=== PATIENT | female | born 1965 | race Caucasian/White ===

== ENCOUNTER 2023-12-26 21:28 | Emergency (ER) | payer OTHER, SELFPAY ==
[2023-12-26 21:29] VITALS: BMI 50.1
[2023-12-26 21:32] VITALS: BP 125/73
[2023-12-26 21:41] VITALS: BP 125/73
--- NOTE | 2023-12-26 21:56 | ED.GENMED ---
History of Present Illness
<Elsa Fraga MD, Resident - Last Filed: 12/27/23 04:43>
General
Chief Complaint: Crisis Evaluation
Source: patient
Exam Limitations: none
Time Seen by Provider: 12/26/23 21:55
Nursing documentation reviewed up to this point in time: agreed with
Travel History
Have you traveled to any high risk areas for coronavirus over the past 14 days?: No
Have you had any contact with someone who has COVID-19?: No
Do you have any symptoms of coronavirus? Fever > 100 degrees, chills, cough, shortness of breath, sore throat, loss of taste or smell, muscle aches, or headache?: No
History of Present Illness
History of Present Illness:
Patient is a 58-year-old female with complicated past medical history multiple sclerosis endometrial neoplasia, frequent UTIs, renal calculi presents to Hospital for evaluation of active suicidal ideation. She states that for the last 6 years she
was in the hospital multiple times and was discharged to [facility], and has been struggling back and forth between [facility] and hospital admissions. She states that she cannot take living at [facility] anymore. States that she had a diagnosis
of mental health illness 5 years ago, 1 year after being in [facility], and was on mood stabilizer. She does not recall the name of her mood stabilizer, and also states that she lost access to her therapist about 3 months ago.
She is sick of going to bed hungry, she is sick of people screaming around her, states that [facility] admits prisoners, crazy people that screams, people touch her things and do not value her opinion, or give any value to her things. Last time she
stood up on her legs was 100 July 21, 2017 and her quality of life has decreased ever since. She has a sister in [facility] who she is in touch with on phone but does not discuss any of these. She was never , does not have
friends, or a partner or family. She is bedridden, does not have access to any weapons, states that ' this time it is an exacto knife', but denies any attempts to suicide in the past.
Admits to have cut herself in the past multiple times for her mental pain to go away, but never attempted suicide.
She admits to having visual hallucinations secondary to multiple sclerosis but it never changed from her baseline.
She denies having impulsive behavior, auditory and tactile hallucinations.
Past History
<Elsa Fraga MD, Resident - Last Filed: 12/27/23 04:43>
Past History
ED Past Medical History: Other (Multiple sclerosis, constipation, dysmenorrhea, renal calculi, frequent UTI, endometrial neoplasia.)
ED Past Surgical History: Other (Cholecystectomy-2015, hysterectomy, appendectomy-2021.)
Patient has exhibited threatening behavior?: No
Social History
Tobacco: Non-smoker
Alcohol: None
Drug: None
Personal: Single
Living: assisted
Employment: Not employed
Family History
Family History: Unable to obtain
Review of Systems
<Elsa Fraga MD, Resident - Last Filed: 12/27/23 04:43>
Review of Systems
Constitutional: Reports no symptoms
EENT: Reports no symptoms
Cardiac: Reports no symptoms
ABD/GI: Reports no symptoms
: Reports no symptoms
Musculoskeletal: Reports no symptoms
Skin: Reports no symptoms
Neurological: Reports no symptoms
Endocrine: Reports no symptoms
Hematologic/Lymphatic: Reports no symptoms
Psychiatric: Reports no symptoms
Phy Exam
<Elsa Fraga MD, Resident - Last Filed: 12/27/23 04:43>
General Physical Exam
General Presentation: other (Morbidly obese.)
General Skin: warm and flushed
General Habitus: obese
General Hydration: appears well hydrated
ENT Exam
ENT Exam: normocephalic
Eye Exam
Eye Exam: PERRL and EOMI
Cardiovascular Exam
Cardiovascular Exam: regular rate/rhythm, no edema, no gallop, no JVD and no murmur
Heart Sounds: normal
Pulmonary Exam
Pulmonary Exam: lungs clear, no rales, no crackles and no rhonchi
Gastrointestinal Exam
Gastrointestinal Exam: normal bowel sounds, soft, no cva tenderness and other (Mild tenderness to palpation in the left lower quadrant)
Neurological Exam
Neurological Exam: alert, no sensory deficits and motor weakness
Musculoskeletal Exam
Musculoskeletal Exam: other (Bedbound)
Course
<Elsa Fraga MD, Resident - Last Filed: 12/27/23 04:43>
Orders/Labs/Results
Orders:
Orders
12/26/23 22:01
1:1 Observation - Suicide/ Violent Behavior As Directed
12/26/23 22:31
Crisis Consult Routine
Reason for Consult: Suicidal ideation.
12/27/23 Lunch
2000 calorie (17 carb) Diabetic
At Your Request: Full Participation
12/27/23 18:27
Apixaban [Eliquis] 5 mg .ROUTE .STK-MED ONE
12/27/23 20:00
Apixaban [Eliquis] 5 mg PO BID
12/28/23 12:43
Acetaminophen [Tylenol] 650 mg PO Q6HPRN PRN
Albuterol Nebs [Ventolin Nebules] 2.5 mg INH R Q6HPRN PRN
12/28/23 12:45
insulin aspart (niacinamide) [Fiasp FlexTouch U-100 Insulin] 16 unit SC .AFTERNOON
metformin 1,000 mg PO BID
12/28/23 13:00
Amlodipine [Norvasc] 5 mg PO DAILY
Duloxetine Delayed Release [Cymbalta Delayed Release] 60 mg PO DAILY
Lisinopril [Zestril] 5 mg PO DAILY
12/28/23 16:00
insulin aspart (niacinamide) [Fiasp FlexTouch U-100 Insulin] 0 - 10 sliding scale dose SC TID
12/28/23 18:00
insulin aspart (niacinamide) [Fiasp FlexTouch U-100 Insulin] 15 unit SC QPM
12/28/23 22:00
Ropinirole [Requip] 2 mg PO HS
Trazodone [Desyrel] 25 mg PO HS
insulin glargine 44 unit SC HS
12/30/23 12:43
glatiramer 40 mg SC TUTHSA
01/02/24 08:00
dulaglutide [Trulicity] 1.5 mg SC FR
Abnormal Lab Results
12/27/23
18:16
POC Glucose 199 H mg/dl
(70-99)
Vital Signs
Initial and Last Documented VS:
Initial Vital Signs
Pulse Resp Pulse Ox
69 22 95
12/26/23 21:31 12/26/23 21:31 12/26/23 21:31
Last Documented Vital Signs
Temp Pulse Resp BP Pulse Ox
98.5 F 72 18 132/90 97
12/27/23 17:26 12/28/23 16:20 12/28/23 10:55 12/28/23 16:20 12/28/23 10:55
<Haydee Lee MD - Last Filed: 12/27/23 00:21>
Orders/Labs/Results
Orders:
Orders
12/26/23 22:01
1:1 Observation - Suicide/ Violent Behavior As Directed
12/26/23 22:31
Crisis Consult Routine
Reason for Consult: Suicidal ideation.
12/27/23 Lunch
2000 calorie (17 carb) Diabetic
At Your Request: Full Participation
12/27/23 18:27
Apixaban [Eliquis] 5 mg .ROUTE .STK-MED ONE
12/27/23 20:00
Apixaban [Eliquis] 5 mg PO BID
12/28/23 12:43
Acetaminophen [Tylenol] 650 mg PO Q6HPRN PRN
Albuterol Nebs [Ventolin Nebules] 2.5 mg INH R Q6HPRN PRN
12/28/23 12:45
insulin aspart (niacinamide) [Fiasp FlexTouch U-100 Insulin] 16 unit SC .AFTERNOON
metformin 1,000 mg PO BID
12/28/23 13:00
Amlodipine [Norvasc] 5 mg PO DAILY
Duloxetine Delayed Release [Cymbalta Delayed Release] 60 mg PO DAILY
Lisinopril [Zestril] 5 mg PO DAILY
12/28/23 16:00
insulin aspart (niacinamide) [Fiasp FlexTouch U-100 Insulin] 0 - 10 sliding scale dose SC TID
12/28/23 18:00
insulin aspart (niacinamide) [Fiasp FlexTouch U-100 Insulin] 15 unit SC QPM
12/28/23 22:00
Ropinirole [Requip] 2 mg PO HS
Trazodone [Desyrel] 25 mg PO HS
insulin glargine 44 unit SC HS
12/30/23 12:43
glatiramer 40 mg SC TUTHSA
01/02/24 08:00
dulaglutide [Trulicity] 1.5 mg SC FR
Abnormal Lab Results
12/27/23
18:16
POC Glucose 199 H mg/dl
(70-99)
Vital Signs
Initial and Last Documented VS:
Initial Vital Signs
Pulse Resp Pulse Ox
69 22 95
12/26/23 21:31 12/26/23 21:31 12/26/23 21:31
Last Documented Vital Signs
Temp Pulse Resp BP Pulse Ox
98.5 F 72 18 132/90 97
12/27/23 17:26 12/28/23 16:20 12/28/23 10:55 12/28/23 16:20 12/28/23 10:55
<Cam Tyler, DO - Last Filed: 12/28/23 17:03>
Orders/Labs/Results
Orders:
Orders
12/26/23 22:01
1:1 Observation - Suicide/ Violent Behavior As Directed
12/26/23 22:31
Crisis Consult Routine
Reason for Consult: Suicidal ideation.
12/27/23 Lunch
2000 calorie (17 carb) Diabetic
At Your Request: Full Participation
12/27/23 18:27
Apixaban [Eliquis] 5 mg .ROUTE .STK-MED ONE
12/27/23 20:00
Apixaban [Eliquis] 5 mg PO BID
12/28/23 12:43
Acetaminophen [Tylenol] 650 mg PO Q6HPRN PRN
Albuterol Nebs [Ventolin Nebules] 2.5 mg INH R Q6HPRN PRN
12/28/23 12:45
insulin aspart (niacinamide) [Fiasp FlexTouch U-100 Insulin] 16 unit SC .AFTERNOON
metformin 1,000 mg PO BID
12/28/23 13:00
Amlodipine [Norvasc] 5 mg PO DAILY
Duloxetine Delayed Release [Cymbalta Delayed Release] 60 mg PO DAILY
Lisinopril [Zestril] 5 mg PO DAILY
12/28/23 16:00
insulin aspart (niacinamide) [Fiasp FlexTouch U-100 Insulin] 0 - 10 sliding scale dose SC TID
12/28/23 18:00
insulin aspart (niacinamide) [Fiasp FlexTouch U-100 Insulin] 15 unit SC QPM
12/28/23 22:00
Ropinirole [Requip] 2 mg PO HS
Trazodone [Desyrel] 25 mg PO HS
insulin glargine 44 unit SC HS
12/30/23 12:43
glatiramer 40 mg SC TUTHSA
01/02/24 08:00
dulaglutide [Trulicity] 1.5 mg SC FR
Abnormal Lab Results
12/27/23
18:16
POC Glucose 199 H mg/dl
(70-99)
Vital Signs
Initial and Last Documented VS:
Initial Vital Signs
Pulse Resp Pulse Ox
69 22 95
12/26/23 21:31 12/26/23 21:31 12/26/23 21:31
Last Documented Vital Signs
Temp Pulse Resp BP Pulse Ox
98.5 F 72 18 132/90 97
12/27/23 17:26 12/28/23 16:20 12/28/23 10:55 12/28/23 16:20 12/28/23 10:55
<Elsa Fraga MD, Resident - Last Filed: 12/27/23 04:43>
MDM/Problems Addressed
Differential Diagnosis Includes:
MDD with active suicidal ideation vs Bipolar disorder
Chronic conditions affecting care: Psychiatric illness and Other (multiple sclerosis)
<Elsa Fraga MD, Resident - Last Filed: 12/27/23 04:43>
*Critical Care Note
Total Time (30-74mins, 75-104mins- exclusive of procedures): Not Applicable
<Elsa Fraga MD, Resident - Last Filed: 12/27/23 04:43>
Patient Management
Social determinants of health affecting care: Living situation and Poor social support
<Elsa Farga MD, Resident - Last Filed: 12/27/23 04:43>
Update Note
Update Note:
Crisis saw the patient and evaluated patient for active suicidal ideation. Patient predisposition is to admit to inpatient.
<Cam Tyler DO - Last Filed: 12/28/23 17:03>
Update Note
Update Note:
Crisis saw the patient and evaluated patient for active suicidal ideation. Patient predisposition is to admit to inpatient.
12-28-2023
5:02 PM care of patient was initially transitioned pending possible inpatient placement. However, patient cleared by psychiatric. Her facility is willing to take her back.
ED Attending Note
<Elsa Fraga MD, Resident - Last Filed: 12/27/23 04:43>
-
Portions of this chart may have been created with voice recognition software.� Occasional wrong word or��sound alike� substitutions may have occurred due to the inherent limitations of voice recognition software.
<Haydee Lee MD - Last Filed: 12/27/23 00:21>
ED Attending Note
Patient seen and examined by attending physician: Yes
I performed the substantive portion of visit, reviewed & personally made and approve the management plan that is documented in note by myself or KEVIN.: Yes
I performed a history and physical exam of patient and discussed management with resident, I reviewed resident's note and agree with documented findings and plan of care.: Yes
ED Attending Note:
58-year-old female recently transferred back to [facility] after an admission for urosepsis at an outside hospital, became very frustrated with the unsatisfying meal that was offered to her, and she states that she 'reach my breaking point', got
access to an X-[employer] knife, and created superficial abrasions on her left inner wrist. When asked if she is actively suicidal she states that she 'cart attendant the ' due to her longstanding chronic illness, unhappiness with her position at [facility] and
care there, etc. Patient has been seen by crisis team. Patient is potentially a candidate for voluntary inpatient psychiatric care and crisis team is investigating this option. Patient denies physical complaints such as fever, chills, nausea,
vomiting, sweats, urinary symptoms, etc. On exam, patient is awake alert oriented, well-perfused, skin is dry, respirations unlabored.
Discharge Plan
Departure
Patient Disposition: Home (Routine Discharge)
Date of Disposition: 12/27/23
Time of Disposition: 00:21
Patient with high blood pressure during this ER visit?: No
Consults for patient: Crisis and Psychiatry
Condition: Fair
Discharge Problem:
Suicidal behavior with attempted self-injury
Prescriptions:
No Action
sennosides [senna] 8.6 mg Tablet
17.2 mg PO DAILY
acetaminophen 325 mg Tablet
650 mg PO Q6HPRN PRN (Reason: mild pain/elevated temp >100.4)
lidocaine 4 % Adhesive Patch,Medicated
1 patch TOPICAL DAILY
albuterol sulfate 2.5 mg /3 mL (0.083 %) Solution For Nebulization
2.5 mg INHALATION R Q6HPRN PRN (Reason: wheezing)
trazodone 50 mg Tablet
25 mg PO HS
polyethylene glycol 3350 [Miralax] 17 gram Powder In Packet
17 g PO DAILYPRN PRN (Reason: constipation)
urea 20 % Cream
1 applic TOPICAL DAILY
Rx Instructions:
apply b/l feet
loperamide 2 mg Tablet
2 mg PO Q8HPRN PRN (Reason: diarrhea)
amlodipine 5 mg tablet
5 mg PO DAILY
acetaminophen 500 mg Tablet
1,000 mg PO BID
cefadroxil 500 mg Capsule
500 mg PO Q12
methenamine hippurate 1 gram tablet
1 g PO BID
magnesium hydroxide [Milk of Magnesia] 400 mg/5 mL Suspension
30 ml PO DAILYPRN PRN (Reason: if no bm x 3 days)
tamsulosin 0.4 mg Capsule
0.4 mg PO DAILY
bisacodyl [Dulcolax (bisacodyl)] 10 mg Suppository
10 mg UT DAILYPRN PRN (Reason: if mom is ineffective)
ropinirole 2 mg Tablet
2 mg PO HS
Fleet Enema 19-7 gram/118 mL Enema
118 ml UT DAILYPRN PRN (Reason: if suppository is ineffective)
lisinopril 5 mg tablet
5 mg PO DAILY
ergocalciferol (vitamin D2) [Vitamin D2] 1,250 mcg (50,000 unit) capsule
1,250 mcg PO WE
nystatin 100,000 unit/gram Powder
1 applic TOPICAL [id number] PRN (Reason: fungal rash to justo area)
levofloxacin 750 mg Tablet
750 mg PO DAILY
metformin 1,000 mg Tablet Extended Release 24hr
1,000 mg PO BID
duloxetine 60 mg Capsule,Delayed Release(Dr/Ec)
60 mg PO DAILY
insulin glargine 100 unit/mL (3 mL) Insulin Pen
44 unit SC HS
apixaban 5 mg Tablet
5 mg PO BID
glatiramer 40 mg/mL Syringe
40 mg SC TUTHSA
Trulicity 1.5 mg/0.5 mL Pen Injector
1.5 mg SC FR
Fiasp FlexTouch U-100 Insulin 100 unit/mL (3 mL) insulin pen
15 unit SC QPM
Fiasp FlexTouch U-100 Insulin 100 unit/mL (3 mL) insulin pen
16 unit SC .AFTERNOON
Fiasp FlexTouch U-100 Insulin 100 unit/mL (3 mL) insulin pen
0 - 10 sliding scale dose SC TID
Rx Instructions:
if 0-250= 0u; 251-300= 2u; 301-350= 4u; 351-400= 6u; 401-450= 10u
Referrals:
Krunal Leonardo, [Family Provider] -
Activity Restrictions/Additional Instructions:
Please return for any worsening symptoms.
You may return at any time if you have further concerns.
Please follow up with your doctor at the first available appointment, preferably this week.
Interventions
Interventions:
*Risk Screen - Suicide Last Done: 12/26/23 21:41
*General Assessment Last Done: 12/26/23 21:41
*Neglect/Abuse Screening Last Done: 12/26/23 21:41
ED- Fall Risk Assessment Last Done: 12/26/23 22:02
*ED COVID-19 Vaccine History Last Done: 12/26/23 22:02
ED-Psychological Assessment Last Done: 12/26/23 22:02
Discharge Date and Time
Print Language: GREENLANDIC
[2023-12-26 22:00] VITALS: BP 121/68
[2023-12-26 23:00] VITALS: BP 120/70
[2023-12-27] VITALS (8 sets, daily range): BP systolic 99–134; BP diastolic 59–77
--- NOTE | 2023-12-27 14:53 | W.PN.UPDATE ---
Update Note
Progress Note Update
Patient is reporting she still has suicidal thoughts although no specific plan. She is very unhappy about being in the [facility] reporting there is lot of disruptive patients there, she feels unsafe and states the food is also very bad.
She is pleasant and friendly but very distressed about current living conditions. She feels she still could harm self if she had to go back to [facility].
She is not acutely psychotic, affect is WNR , mood stable. She does not have cognitive deficits.
We are trying to find appropriate placement.
Supportive intervention given.
[2023-12-27 18:17] LABS: Glucose - Point of Care 199 mg/dl (70-99)
[2023-12-27] MEDS: ELIQUIS 5 MG PO (18:30)
[2023-12-28 02:25] VITALS: BP 123/75
[2023-12-28 10:55] VITALS: BP 114/72
[2023-12-28] MEDS: ELIQUIS 5 MG PO ×2 (11:35→20:13)
--- NOTE | 2023-12-28 15:40 | CM ---
Addendum entered by Christiana Logan 12/28/23 15:53:
Attending physician also made aware. CM sent a brief, encrypted email saying a patient can return today, but CM will need ok from milieu coordinator first, per nursing prep room supervisor.
Addendum entered by Christiana Logan 12/28/23 15:48:
Bedside RN and charge account identification clerk made aware of below via TT
Original Note:
CM consult for placement. Patient was a 201 but per Crisis, patient is now cleared and signed off of their services. Patient comes from [facility] and is not happy with the care she is receiving there. Per ED staff, patient has not complained of any
abuse or other mistreatment. CM introduced self and role. Patient confirmed that she is not happy at [facility] and would like to go to a facility in [place].
CM spoke with patient and explained that the easiest way for her to transfer to another facility in [place] would to be if it was a 'facility to facility' transfer. She would have to speak with her public health social worker at the SNF about it. CM
printed out a list of several SNFs in [place] via medicare.gov. CM confirmed with [facility] that patient is cleared from their services, because she doesn't have plan.
CM called [facility] to speak with nursing prep room supervisor. The nursing prep room supervisor said that CM would have to email: [email or web address]. Clinicals should be attached with the email and the milieu coordinator may or may not get back to [facility]
today. Admissions is usually off during the weekends.
--- NOTE | 2023-12-28 15:48 | W.PN.UPDATE ---
Update Note
Progress Note Update
Patient is slightly better, denies present hopelessness or suicidal thoughts. She still wants to go to another facility but realizes that she cannot be in ER for an extended period of time while the case management is looking for placement.
He mood is less depressed, affect brighter. Appetite is good, denies insomnia.
I told patient she can return if she develops thoughts about harming self.
[2023-12-28] MEDS: ZESTRIL 5 MG PO (16:20)
[2023-12-28] MEDS: TYLENOL 650 MG PO (16:20)
[2023-12-28] MEDS: CYMBALTA DELAYED RELEASE 60 MG PO (16:20)
--- NOTE | 2023-12-28 18:38 | EDRN ---
Patient stated that she would be willing to go back the senior living so they can work on placement to another facility in [facility] near her sister. Transport is being arranged and pickle pumper is to be 1930
--- NOTE | 2023-12-28 19:54 | EDRN ---
Woke pt to discuss 2000 medications with pt. Pt agreeable to taking metformin. Called pharmacy for metformin.
[2023-12-28] MEDS: GLUCOPHAGE XR EXTENDED RELEASE 1000 MG PO (20:13)
[2023-12-28 20:17] VITALS: BP 134/72
--- NOTE | 2023-12-28 21:27 | EDRN ---
Report given to Manjeet fabian
== END 2023-12-28 21:36 | disposition home or self-care (01) ==
LOC: EMR 21:28
PROVIDERS: EMERGENCY PHYSICIAN Emergency Medicine; FAMILY PHYSICIAN Internal Medicine
DX: S60.812A Abrasion of left wrist, initial encounter (principal); X78.1XXA Intentional self-harm by knife, initial encounter; G35 Multiple sclerosis; E66.01 Morbid (severe) obesity due to excess calories; E11.9 Type 2 diabetes mellitus without complications; Z87.442 Personal history of urinary calculi; Z87.440 Personal history of urinary (tract) infections; Z90.49 Acquired absence of other specified parts of digestive tract; Z88.1 Allergy status to other antibiotic agents
CPT/HCPCS: 99285; 82962